=== PATIENT | male | born 1970 | race Caucasian/White ===

== ENCOUNTER 2017-07-21 02:42 | Emergency (ER) | payer OTHER ==
[~2017-07-21] VITALS: Ht 180.3 cm; Wt 85.0 kg
[2017-07-21 02:55] VITALS: BP 160/84; PULSE 86; RESP 16; TEMP 98.5; O2SAT 100
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
[2017-07-21] MEDS ORDERED: TETANUS/DIPHTHERIA TOXOID ADULT 0.5 ML VIAL IM ONE (04:00)
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
[2017-07-21] MEDS ORDERED: ACETAMINOPHEN 325 MG TAB PO ONE (05:30)
== END 2017-07-21 05:49 | disposition home or self-care (01) ==
LOC: NEPD 02:42
DX: S01.81XA Laceration without foreign body of other part of head, initial encounter (principal); F10.129 Alcohol abuse with intoxication, unspecified; M50.31 Other cervical disc degeneration, high cervical region; M50.321 Other cervical disc degeneration at C4-C5 level; J32.0 Chronic maxillary sinusitis; V47.5XXA Car driver injured in collision with fixed or stationary object in traffic accident, initial encounter; Z23 Encounter for immunization
CPT/HCPCS: 12013; 70450; 70486; 72125; 90471; 90714; 99283; L0150